=== PATIENT | female | born 1975 | race Asian ===

== ENCOUNTER 2019-02-02 20:18 | Emergency (ER) | payer SELFPAY ==
[~2019-02-02] VITALS: Ht 149.9 cm; Wt 52.7 kg
[2019-02-02] MEDS ORDERED: EPINEPHRINE 1 MG/ML, 1ML SQ ONE (20:30)
[2019-02-02] MEDS ORDERED: FAMOTIDINE 20 MG TABLET PO ONE (20:30)
[2019-02-02] MEDS ORDERED: DEXAMETHASONE 4 MG/ML, 5ML IM ONE (20:30)
[2019-02-02] MEDS ORDERED: DIPHENHYDRAMINE 25 MG CAPSULE PO ONE (20:30)
[2019-02-02] MEDS ORDERED: DIPHENHYDRAMINE 50 MG/ML, 1ML IM ONE (20:30)
[2019-02-02] MEDS ORDERED: EPINEPHRINE 1 MG/ML, 1ML ONE (20:31)
[2019-02-02] MEDS ORDERED: FAMOTIDINE 20 MG TABLET ONE (20:31)
[2019-02-02] MEDS ORDERED: DIPHENHYDRAMINE 25 MG CAPSULE ONE (20:32)
--- NOTE | 2019-02-02 20:38 | NUR ---
PT. TO ED WITH ALLERGIC REACTION. PT. REPORTS SHE ATE AN ANCHOVIE AND STARTED FEELING ITCHY AROUND 1400. HIVES STARTED SHORTLY AFTER. PT. IS ABLE TO SPEAK FULL SENTENCES AND MANAGE OWN SECRETIONS. THIS RN WAS ABOUT TO MEDICATED PT. WITH PIT ORDERS; ORDERS WERE CHANGED. DR. MANCILLA AT BS NOW AND PER HIM HOLD OFF ON ALL ORDERS UNTIL HE PUTS NEW ORDERS IN AND ESTABLISH IV FOR NOW.
[2019-02-02] MEDS ORDERED: methylPREDNISolone SOD SUCC 125 MG/2 ML ONE (20:49)
[2019-02-02] MEDS ORDERED: DIPHENHYDRAMINE 50 MG/ML, 1ML ONE (20:49)
[2019-02-02] MEDS ORDERED: FAMOTIDINE 20 MG/2 ML ONE (20:49)
--- NOTE | 2019-02-02 20:57 | NUR ---
PT. MEDICATED PER NOV. CONTINUOUS PULSE OX, B/P, AND HEART MONITORS HAVE BEEN IN PLACE SINCE ARRIVAL TO ROOM. PT. CONTINUES TO MAINAIN OWN AIRWAY. FAMILY AT BS FOR SUPPORT. CALL LIGHT IN REACH. ALL SAFETY MEASURES OBSERVED.
[2019-02-02] MEDS ORDERED: DIPHENHYDRAMINE 50 MG/ML, 1ML IVPush ONE (21:00)
[2019-02-02] MEDS ORDERED: methylPREDNISolone SOD SUCC 125 MG/2 ML IVPush ONE (21:00)
[2019-02-02] MEDS ORDERED: FAMOTIDINE 20 MG/2 ML IVPush ONE (21:00)
--- NOTE | 2019-02-02 21:37 | NUR ---
PT. RESTING ON GURNEY WITH NADN. PT. REPORTS "THE ONLY THING THAT IS WORNG IS I AM COLD." SORIN PAW WARMER IN USE FOR COMFORT. PT. REPORTS ITCHING IS GETTING BETTER. PT. CONTINUES TO MAINTAIN OWN AIRWAY AND SECRETIONS. VS UPDATED. CALL LIGHT IN REACH. SAFETY MEASURES MAINTAINED.
--- NOTE | 2019-02-02 22:15 | NUR ---
DR. MANCILLA HAS BEEN BACK IN TO RE-EVAL PT. PLAN IS FOR PT. TO D/C. HIVE SIGNIFICANTLY IMPROVED AT THIS TIME ESPECIALLY TO FACE/NECK AREA. RIGHT ARM HIVE REMAIN. PT. DENIES ITCHING AT THIS TIME. NADN. SAFETY MEASURES MAINTAINED.
[2019-02-02 22:30] VITALS: BP 139/87
== END 2019-02-02 22:34 | disposition home or self-care (01) ==
LOC: ED 21:53
DX: L50.0 Allergic urticaria (principal)
CPT/HCPCS: 96374; 96375; 99283; J1200; J2930; J3490

== ENCOUNTER 2019-11-30 18:09 | Emergency (ER) | payer OTHER ==
[~2019-11-30] VITALS: Ht 152.4 cm; Wt 52.1 kg
[2019-11-30 18:21] VITALS: BP 160/100
[2019-11-30] MEDS ORDERED: FAMOTIDINE 20 MG TABLET PO ONE (18:30)
[2019-11-30] MEDS ORDERED: FAMOTIDINE 20 MG TABLET ONE (18:46)
[2019-11-30] MEDS ORDERED: hydrOXyzine 50MG TABLET ONE (18:46)
[2019-11-30] MEDS ORDERED: TRIAMCINOLONE CRM 0.025%, 15GM TP SCH (19:00)
--- NOTE | 2019-11-30 19:04 | NUR ---
REQUESTED MED FROM [facility].
--- NOTE | 2019-11-30 19:38 | NUR ---
OINTMENT GIVEN TO PT, PT APPLIED.
== END 2019-11-30 19:39 | disposition home or self-care (01) ==
LOC: ED 19:30
DX: L23.9 Allergic contact dermatitis, unspecified cause (principal); R21 Rash and other nonspecific skin eruption
CPT/HCPCS: 99284; J7512; Q0177

== ENCOUNTER 2020-09-10 13:25 | Emergency (ER) | payer OTHER ==
[~2020-09-10] VITALS: Ht 147.3 cm; Wt 51.2 kg
--- NOTE | 2020-09-10 14:15 | NUR ---
ASSOCIATE CURATOR: PT TO ROOM FROM JAYME CARMONA
--- NOTE | 2020-09-10 14:21 | NUR ---
CHEST HEAVINESS, CHEST IS SORE AND NO TASTE OR SMELL. FEELS SOB
[2020-09-10 14:29] VITALS: BP 150/91
[2020-09-10 14:47] LABS: BASOPHILS % (AUTO) 1 % (0-1); EOSINOPHILS % (AUTO) 0 % (1-7); LYMPHOCYTES % (AUTO) 24 % (22-44); MEAN CORPUSCULAR HGB CONC 34.1 g/dL (32.4-35.8); MEAN PLATELET VOLUME 8.4 fL (7.4-10.4); MONOCYTES % (AUTO) 5 % (2-9); NEUTROPHILS % (AUTO) 70 % (42-75); PLATELET COUNT 185 x10^3/uL (130-400); RED BLOOD COUNT 4.58 x10^6/uL (3.82-5.3); RED CELL DISTRIBUTION WIDTH 12.5 % (9.6-15.2)
[2020-09-10 14:51] LABS: MD NO
[2020-09-10 15:01] LABS: ANION GAP 5 mmol/L (5-15); CALCIUM 8.5 mg/dL (8.5-10.1); CHLORIDE 109 mmol/L (98-107)
[2020-09-10 15:09] LABS: ALANINE AMINOTRANSFERASE 26 U/L (12-78); ALBUMIN 3.8 g/dL (3.4-5.0); ALKALINE PHOSPHATASE 72 U/L (45-117); BILIRUBIN,TOTAL 0.3 mg/dL (0.2-1.0); CREATININE 0.67 mg/dL (0.55-1.02); TOTAL PROTEIN 7.9 g/dL (6.4-8.2)
[2020-09-10] MEDS ORDERED: POTASSIUM CHLORIDE 20 MEQ TAB.ER.PRT ONE (15:44)
--- NOTE | 2020-09-10 15:55 | NUR ---
MEDICATED PER MAR.
[2020-09-10] MEDS ORDERED: POTASSIUM CHLORIDE 20 MEQ TAB.ER.PRT PO ONE (16:00)
--- NOTE | 2020-09-10 16:55 | NUR ---
PT REC'VD DISCHARGE INSTRUCTIONS AND EDUCATION. PT HAD NO FURTHER QUESTIONS. PT AMBULATED TO DC AREA, STEADY GAIT.
== END 2020-09-10 16:57 | disposition home or self-care (01) ==
LOC: ED 14:08
DX: J18.9 Pneumonia, unspecified organism (principal); Z20.828 Contact with and (suspected) exposure to other viral communicable diseases; R43.0 Anosmia; R05 Cough; R00.0 Tachycardia, unspecified; I10 Essential (primary) hypertension
CPT/HCPCS: 36415; 71045; 80053; 85025; 87081; 87635; 87880; 93005; 99285